=== PATIENT | male | born 1980 | race Hispanic/Latino ===

== ENCOUNTER 2017-02-09 21:04 | Emergency (ER) | payer SELFPAY ==
[2017-02-09] MEDS ORDERED: Lidocaine 1% 20 ML MDV ONE (21:19)
--- NOTE | 2017-02-09 21:45 | RAD ---
THREE VIEW RIGHT FOOT 02/09/17 INDICATION: Pain. FINDINGS: There is soft tissue prominence of the fourth digit. No fracture or dislocation identified. Lisfran c joint is maintained. IMPRESSION: Soft tissue prominence of the fourth digit. Correlate clinically. No acute osseous abnormality. POS: [facility]
[2017-02-09 21:46] LABS: #Basophils 0.2 thou/uL (0.0-0.2); #Eosinphils 0.2 thou/uL (0.0-0.7); #Lymphocytes 3.4 thou/uL (1.20-3.40); #Monocytes 0.9 thou/uL (0.11-0.59); #Neutrophils 11.5 thou/uL (1.40-6.50); %Basophils 0.9 % (0.0-1.0); %Eosinophils 1.5 % (0.0-10.0); %Lymphocytes 21.1 % (21.0-51.0); %Monocytes 5.7 % (0.0-10.0); %Neutrophils 70.8 % (42.0-75.0); Hemoglobin 14.8 g/dL (14.0-18.0); Mean Corpuscular HGB CONC 31.6 g/dL (32.0-36.0); Mean Corpuscular Hemoglobin 27.8 pg (27.0-31.0); Mean Platelet Volume 10.3 fL (7.4-10.4); Platelet Count 201 thou/uL (130-400); Red Blood Cell (RBC) Count 5.33 mill/uL (4.70-6.10); White Blood Cell (WBC) Count 16.2 thou/uL (4.8-10.8)
[2017-02-09 21:59] LABS: ALT (SGPT) 27 U/L (8-55); AST (SGOT) 17 U/L (5-34); Albumin 4.1 g/dL (3.5-5.0); Alkaline Phosphatase 85 U/L (40-150); Anion Gap 16 mmol/L (10-20); BUN (Urea Nitrogen) 12 mg/dL (8.9-20.6); Bilirubin, Total 1.2 mg/dL (0.2-1.2); CK (CPK) 118 U/L (30-200); Calc. Creatinine Clearance 0 mL/min (70-130); Calcium 9.2 mg/dL (7.8-10.44); Carbon Dioxide 24 mmol/L (22-29); Chloride 102 mmol/L (98-107); Estimated GFR-MDRD 87; Globulin 3.4 g/dL (2.4-3.5); Glucose 157 mg/dL (70-105); Potassium 3.3 mmol/L (3.5-5.1); Protein, Total 7.5 g/dL (6.0-8.3); Sodium 139 mmol/L (136-145)
[2017-02-09] MEDS ORDERED: Ondansetron HCl/PF 4 MG/2 ML Vial ONE (22:25)
[2017-02-09] MEDS ORDERED: Morphine 2 MG/ML SYRINGE ONE ×2 (22:25→22:55)
[2017-02-09] MEDS ORDERED: Adacel (T-DAP) 0.5 ML VIAL ONE (22:29)
[2017-02-09] MEDS ORDERED: Sodium Chloride 0.9% 250 ML 250 ML ONE (22:52)
[2017-02-10] MEDS ORDERED: HYDROcodone/Acetaminophen 10/325 mg Tablet ONE (01:53)
[2017-02-10] MEDS ORDERED: Sulfameth/Trimethoprim DS 800-160mg TAB ONE (01:58)
[2017-02-10 12:03] LABS: HBSAB Concentration 5.74 mIU/mL; HIV (1/2) Antibody/Antigen Non-Reactive (NonReactive); HIV 1/2 INDEX 0.19 S/CO (<1.00); Hep B Surf AB Non-Reactive (NonReactive); Hep C IgG Ab Non-Reactive (NonReactive); Hep C Index 0.07 S/CO (0-0.79)
== END 2017-02-10 02:05 | disposition home or self-care (01) ==
LOC: NAV ERS 21:04
DX: L02.621 Furuncle of right foot (principal); Z87.891 Personal history of nicotine dependence
CPT/HCPCS: 10060; 36415; 80053; 82550; 83605; 85025; 85652; 86706; 86803; 87040; 87070; 87077; 87186; 87205; 87389; 90471; 90715; 96361; 96365; 96375; J2001; J2270; J2405; J3370; J7050

== ENCOUNTER 2017-02-12 08:27 | Emergency (ER) | payer SELFPAY | END 2017-02-12 09:10 | disposition home or self-care (01) | LOC: NAV ERS 08:27 | DX: L02.621 Furuncle of right foot (principal); Z87.891 Personal history of nicotine dependence; Z79.899 Other long term (current) drug therapy | CPT/HCPCS: 99282 ==